=== PATIENT | female | born 1980 ===

== ENCOUNTER → 2021-03-01 | Day surgery (SDC) | payer OTHER ==
[~2021-03-01] VITALS: Ht 157.5 cm; Wt 95.2 kg
[~2021-03-01] MED LIST: ABILIFY10 MG PO; LAMICTAL XR100 MG PO; LEXAPRO 10MG TA10 MG PO
[2021-03-01 06:17] LABS: HCG (URINE) SCREEN NEGATIVE (NEGATIVE)
[2021-03-01 06:35] LABS: HCT 43.1 % (37.0-47.0); HGB 14.3 g/dl (12.5-16.0); MCH 29.7 pg (25.0-31.0); MCHC 33.2 g/dL (32.0-36.0); MCV 89.6 fL (78.0-100.0); MPV 8.4 fL (6.0-9.5); RBC 4.81 M/uL (4.20-5.40); WBC 8.6 K/uL (4.0-10.5)
[2021-03-01 07:19] LABS: ALBUMIN 3.8 g/dL (3.4-5.0); BILIRUBIN - TOTAL 0.2 mg/dL (0.2-1.0); BUN/CREAT RATIO (CALC) 16.3 RATIO; CREATININE 0.92 mg/dL (0.51-0.95); GLOBULIN (CALCULATION) 3.4 g/dL; TOTAL PROTEIN 7.2 g/dL (6.4-8.2)
== END | disposition home or self-care (01) ==
LOC: FAS 05:55
PROVIDERS: Orthopaedic Surgery
DX: S56.511A Strain of other extensor muscle, fascia and tendon at forearm level, right arm, initial encounter (principal); M77.11 Lateral epicondylitis, right elbow; X58.XXXA Exposure to other specified factors, initial encounter; Y92.9 Unspecified place or not applicable
CPT/HCPCS: 36415; 80053; 84703; J1100; J1885; J2405; J3010; J7120